=== PATIENT | female | born 1950 | race Caucasian/White ===

== ENCOUNTER 2017-05-11 22:27 | Emergency (ER) | payer MEDICARE, MEDICAID ==
[~2017-05-11] VITALS: Ht 160 cm; Wt 79.0 kg
[2017-05-11 22:43] VITALS: BP 150/82
[2017-05-11] MEDS ORDERED: MELO-106 PO (22:49)
[2017-05-11] MEDS ORDERED: KETOROLAC 60MG/2ML VIAL IM ONE (23:45)
== END 2017-05-12 00:17 | disposition home or self-care (01) ==
LOC: ER 22:43
DX: M75.32 Calcific tendinitis of left shoulder (principal); M19.90 Unspecified osteoarthritis, unspecified site
CPT/HCPCS: 96372; 99283; J1885

== ENCOUNTER 2017-05-26 16:58 | Emergency (ER) | payer MEDICARE, MEDICAID ==
[~2017-05-26] VITALS: Ht 160 cm; Wt 63.0 kg
[~2017-05-26 16:58] MED LIST: MELO-106 PO
[2017-05-26 18:28] LABS: BASOPHILS % 0.3 % (0.0-2.0); EOSINOPHILS % 0.4 % (0.0-5.0); HEMATOCRIT. 41.4 % (36.0-48.0); HEMOGLOBIN. 14.3 g/dL (12.0-16.0); LYMPHOCYTES % 17.5 % (20.0-50.0); MEAN CORPUSCULAR HEMOGLOBIN 31.5 pg (28.0-32.0); MEAN CORPUSCULAR VOLUME 91.1 fL (81.0-99.0); MEAN PLATELET VOLUME 6.3 fl (7.4-10.4); MONOCYTES % 9.2 % (2.0-8.0); NEUTROPHILS % 72.6 % (40.0-76.0); PLATELET 513 x1000/uL (130-400); RED BLOOD CELL COUNT 4.54 mill/uL (4.2-5.4); RED CELL DISTRIBUTION WIDTH 12.3 % (11.6-14.6)
[2017-05-26 18:34] LABS: INR 1.1; PROTHROMBIN TIME 11.4 sec (9.4-11.6)
[2017-05-26 18:43] LABS: CHLORIDE 105 mEq/L (98-107); CREATINE KINASE 45 IU/L (26-192); TROPONIN I < 0.02 ng/mL (0.00-0.04)
[2017-05-26 18:44] LABS: CREATINE KINASE MB FRACTION 0.5 ng/mL (0.5-3.6)
[2017-05-26] MEDS ORDERED: HYDROCODONE/ACETAMINOPHEN 5/325MG TABLET PO ONE (22:45)
[2017-05-26] MEDS ORDERED: ONDANSETRON 4MG ODT PO ONE (23:00)
[2017-05-27 00:40] VITALS: BP 125/79
== END 2017-05-27 00:40 | disposition home or self-care (01) ==
LOC: ER 17:18
DX: M54.12 Radiculopathy, cervical region (principal); M65.28 Calcific tendinitis, other site; M25.511 Pain in right shoulder; G89.29 Other chronic pain; I10 Essential (primary) hypertension; D72.829 Elevated white blood cell count, unspecified; R73.9 Hyperglycemia, unspecified
CPT/HCPCS: 36415; 71045; 72125; 73030; 73050; 80053; 82550; 82553; 83690; 83880; 84484; 85025; 85610; 85730; 93005; 99285; Q0162

== ENCOUNTER 2017-08-26 10:24 | Emergency (ER) | payer MEDICARE, MEDICAID ==
[~2017-08-26] VITALS: Ht 162.6 cm; Wt 71.0 kg
[2017-08-26 12:00] LABS: BASOPHILS % 0.2 % (0.0-2.0); EOSINOPHILS % 0.7 % (0.0-5.0); HEMATOCRIT. 39.2 % (36.0-48.0); HEMOGLOBIN. 13.5 g/dL (12.0-16.0); LYMPHOCYTES % 12.2 % (20.0-50.0); MEAN CORPUSCULAR HEMOGLOBIN 30.5 pg (28.0-32.0); MEAN CORPUSCULAR VOLUME 88.6 fL (81.0-99.0); MEAN PLATELET VOLUME 6.5 fl (7.4-10.4); NEUTROPHILS % 80.9 % (40.0-76.0); PLATELET 372 x1000/uL (130-400); RED BLOOD CELL COUNT 4.42 mill/uL (4.2-5.4); RED CELL DISTRIBUTION WIDTH 12.8 % (11.6-14.6)
[2017-08-26 12:03] LABS: CHLORIDE 105 mEq/L (98-107)
[2017-08-26 12:05] LABS: PROTHROMBIN TIME 10.8 sec (9.4-11.6)
[2017-08-26 12:09] LABS: AMMONIA 20 uMol/L (<32)
[2017-08-26] MEDS ORDERED: HYDROCODONE/ACETAMINOPHEN 5/325MG TABLET PO ONE (13:45)
[2017-08-26] MEDS ORDERED: SODIUM CHLORIDE 0.9% 500 ML IV ONE (13:45)
[2017-08-26 14:22] LABS: CLARITY URINE CLEAR (CLEAR); COLOR URINE YELLOW (YELLOW); KETONES URINE NEGATIVE (NEGATIVE); LEUKOCYTE ESTERASE URINE TRACE (NEGATIVE); NITRITE URINE NEGATIVE (NEGATIVE); OCCULT BLOOD URINE 1+ (NEGATIVE); PROTEIN URINE NEGATIVE (NEGATIVE); SPECIFIC GRAVITY URINE 1.014 (1.005-1.030); UROBILINOGEN URINE 0.2 E.U./dL (0.2-1.0)
[2017-08-26 15:15] LABS: *AMPHETAMINES SCREEN URINE NEGATIVE (NEGATIVE); *BARBITURATES SCREEN URINE NEGATIVE (NEGATIVE); *BENZODIAZEPINES SCREEN URINE NEGATIVE (NEGATIVE); *COCAINE SCREEN URINE NEGATIVE (NEGATIVE); CANNABINOID URINE SCREEN NEGATIVE (NEGATIVE); METHADONE URINE SCREEN NEGATIVE (NEGATIVE); OPIATES URINE SCREEN NEGATIVE (NEGATIVE); PHENCYCLIDINE URINE SCREEN NEGATIVE (NEGATIVE)
[2017-08-26 15:35] VITALS: BP 123/71
== END 2017-08-26 18:20 | disposition home or self-care (01) ==
LOC: ER 11:18
DX: S00.83XA Contusion of other part of head, initial encounter (principal); N17.0 Acute kidney failure with tubular necrosis; R73.03 Prediabetes; R55 Syncope and collapse; E86.0 Dehydration; R90.82 White matter disease, unspecified; D72.810 Lymphocytopenia; Y93.89 Activity, other specified; X58.XXXA Exposure to other specified factors, initial encounter; Y92.89 Other specified places as the place of occurrence of the external cause
CPT/HCPCS: 29125; 36415; 70450; 71045; 80053; 80305; 81003; 82140; 83036; 83874; 83880; 84484; 85025; 85610; 87040; 87086; 93005; 99285; J7040